=== PATIENT | female | born 1960 | race Caucasian/White ===

== ENCOUNTER 2017-10-12 09:35 | Emergency (ER) | payer BC ==
[2017-10-12] MEDS ORDERED: LIDOCAINE IV STA (10:24)
[2017-10-12] MEDS ORDERED: SODIUM CHLORIDE 0.9% IV STA (10:24)
[2017-10-12] MEDS ORDERED: SODIUM CHLORIDE 0.9% IV ONE (10:30)
[2017-10-12] MEDS ORDERED: LIDOCAINE IV ONE (10:30)
--- NOTE | 2017-10-12 10:30 | C.PDOC ---
History Of Present Illness 57yo female, presents to ED for evaluation of an episode of hematuria this morning and right lower quadrant abdominal pain since last night. Patient states she had chills, nausea, vomiting, diarrhea and myalgia for the past 4 days but those symptoms have now resolved. Patient states she is unsure if her abdominal pain was present over the past 4 days due to her other symptoms. She denies any fever, dysuria or polyruia. She was evaluated by her PMD yesterday for her previous symptoms and was supposed to give a stool sample; patient states her PMD is unaware of the hematuria. She reports a history of kidney stones but states the current symptoms are not similar to prior. Patient denies any chest pain, shortness of breath, vomiting, and offers no other medical complaints. Time Seen by Provider: 10/12/17 09:56 Chief Complaint (Nursing): Female Genitourinary History Per: Patient History/Exam Limitations: no limitations Onset/Duration Of Symptoms: Days (1) Current Symptoms Are (Timing): Still Present Additional History Per: Patient Past Medical History Reviewed: Historical Data, Nursing Documentation, Vital Signs Vital Signs: Last Vital Signs Temp 98.1 F 10/12/17 09:37 Pulse 80 10/12/17 12:00 Resp 20 10/12/17 12:00 BP 137/83 10/12/17 12:00 Pulse Ox 100 10/12/17 12:00 - Medical History PMH: HTN, Kidney Stones, Migraine Surgical History: Cholecystectomy (17 YRS AGO), Other Surgeries: ureteral stents Family History: States: No Known Family Hx, Unknown Family Hx - Social History Hx Tobacco Use: No Hx Alcohol Use: No Hx Substance Use: No - Immunization History Hx Tetanus Toxoid Vaccination: Yes Hx Influenza Vaccination: Yes Hx Pneumococcal Vaccination: Yes Review Of Systems Except As Marked, All Systems Reviewed And Found Negative. Constitutional: Negative for: Fever, Chills, Malaise Cardiovascular: Negative for: Chest Pain Respiratory: Negative for: Shortness of Breath Gastrointestinal: Positive for: Abdominal Pain (right lower quadrant). Negative for: Nausea, Vomiting, Diarrhea Genitourinary: Positive for: Hematuria. Negative for: Dysuria, Frequency, Other (polyuria) Physical Exam - Physical Exam Appears: Non-toxic, Other (mild painful distres) Skin: Normal Color, Warm, Dry Head: Atraumatic, Normacephalic Eye(s): bilateral: Normal Inspection, EOMI Nose: Normal Oral Mucosa: Moist Neck: Normal ROM, Supple Chest: Symmetrical Cardiovascular: Rhythm Regular Respiratory: Normal Breath Sounds Gastrointestinal/Abdominal: Soft, Tenderness (right lower quadrant), No Guarding , No Rebound Back: Normal Inspection, No CVA Tenderness Extremity: Normal ROM, No Pedal Edema Neurological/Psych: Oriented x3 ED Course And Treatment - Laboratory Results Result Diagrams: 10/12/17 10:51 10/12/17 10:51 O2 Sat by Pulse Oximetry: 98 (RA) Pulse Ox Interpretation: Normal Progress Note: Labs, CT abdomen/pelvis ordered. Patient given Lidocaine and Toradol for pain relief. Progress - Re-Evaluation Re-evaluation Note: 10/12/17 11:27 D/W DR TOLBERT AWARE OF ER FINDINGS. CT PENDING. DC IF NEG 10/12/17 13:04 D/W DR TOLBERT AWARE OF CT FINDINGS, FU OFFICE 10/12/17 13:21 APPEARS COMFORTABLE FU OFFICE - Data Reviewed Data Reviewed: Lab, Diagnostic imaging, Old records Disposition Counseled Patient/Family Regarding: Studies Performed, Diagnosis, Need For Followup - Disposition Referrals: Carlin Tolbert MD [Staff Provider] - Disposition: HOME/ ROUTINE Disposition Time: 13:22 Condition: GOOD Instructions: Diverticulosis (DC) Forms: [facility] ([place]), Work/School/Gym Excuse - Clinical Impression Clinical Impression: Diverticulosis - Scribe Statement The provider has reviewed the documentation as recorded by the Scribe (Norma Xiao) Provider Attestation: All medical record entries made by the Scribe were at my direction and personally dictated by me. I have reviewed the chart and agree that the record accurately reflects my personal performance of the history, physical exam, medical decision making, and the department course for this patient. I have also personally directed, reviewed, and agree with the discharge instructions and disposition.
[2017-10-12 11:01] LABS: SQUAMOUS EPITHIAL < 1 /hpf (0-5); URINE BILIRUBIN NEGATIVE (NEGATIVE); URINE BLOOD NEGATIVE (NEGATIVE); URINE CLARITY Clear (Clear); URINE COLOR Amber (YELLOW); URINE GLUCOSE (UA) NORMAL (Normal); URINE LEUKOCYTE ESTERASE TRACE Leu/uL (Negative); URINE PROTEIN NEGATIVE (NEGATIVE); URINE UROBILINOGEN NORMAL mg/dL (0.2-1.0)
[2017-10-12 11:03] LABS: BASO % 0.8 % (0.0-2.0); EOS # 0.4 K/uL (0.0-0.7); EOS % 7.5 % (0.0-4.0); LYMPH # 1.7 K/uL (1.0-4.3); LYMPH % 29.9 % (20.0-40.0); MEAN CELL VOLUME 89.6 fL (81.0-99.0); MEAN CORPUSCULAR HEMOGLOBIN 30.3 pg (27.0-31.0); MEAN CORPUSCULAR HGB CONC 33.8 g/dL (33.0-37.0); MEAN PLATELET VOLUME 8.5 fL (7.2-11.7); MONO # 0.4 K/uL (0.0-0.8); MONO % 7.5 % (0.0-10.0); NEUT # 3.1 K/uL (1.8-7.0); NEUT % 54.3 % (50.0-75.0); NRBC % 0.1 % (0.0-2.0); RBC 4.62 Mil/uL (3.80-5.20); RED CELL DISTRIBUTION WIDTH 13.2 % (11.5-14.5); WHITE BLOOD COUNT 5.8 K/uL (4.8-10.8)
[2017-10-12 11:09] LABS: ALB/GLOB RATIO 1.1 (1.0-2.1); ALBUMIN 4.4 g/dL (3.5-5.0); ALT/SGPT 78 U/L (9-52); AST/SGOT 55 U/L (14-36); BLOOD UREA NITROGEN 16 mg/dL (7-17); CALCIUM 9.4 mg/dl (8.6-10.4); GFR AFRICAN-AMERICAN > 60; GFR NON-AFRICAN AMERICAN > 60; LIPASE 196 U/L (23-300)
--- NOTE | 2017-10-12 12:52 | CT ---
PROCEDURE: CT Abdomen and Pelvis without intravenous contrast HISTORY: RLQ PAIN HEMATURIA RO RENAL STONE VS APPY COMPARISON: Abdomen ultrasound 07/03/2014. TECHNIQUE: Helical CT of the abdomen and pelvis was performed without oral or intravenous contrast as per referring physician request. Contrast dose: None Radiation dose: Total exam DLP = 495.50 mGy-cm. This CT exam was performed using one or more of the following dose reduction techniques: Automated exposure control, adjustment of the mA and/or kV according to patient size, and/or use of iterative reconstruction technique. FINDINGS: LOWER THORAX: Unremarkable. LIVER: Unremarkable. No gross lesion or ductal dilatation. GALLBLADDER AND BILE DUCTS: Prior cholecystectomy reiterated. PANCREAS: Unremarkable. No gross lesion or ductal dilatation. SPLEEN: Unremarkable. ADRENALS: Unremarkable. No mass. KIDNEYS AND URETERS: No obstructive uropathy bilaterally. Multiple intrarenal calculi identified bilaterally, numbering at least 2 which are only 1-2 mm greatest dimension the right kidney's Lower and midpole regions with 2 or 3 seen at the left kidney. The largest at the left measures 6.3 mm at the lower pole. The cyst is seen measure 1.5 cm greatest dimension exophytic posteriorly off the midpole right kidney. VASCULATURE: Unremarkable. No aortic aneurysm. BOWEL: Stomach is collapsed. No bowel obstruction evident. Moderate fecal loading seen throughout the colon. Scattered colonic diverticular appreciated which not appear acute. Left hemicolon is more affected than right. APPENDIX: Unremarkable. Normal appendix. PERITONEUM: Unremarkable. No free fluid. No free air. LYMPH NODES: Unremarkable. No enlarged lymph nodes. BLADDER: Unremarkable. REPRODUCTIVE: Unremarkable. BONES: No acute fracture. OTHER FINDINGS: None. IMPRESSION: Nonobstructing intrarenal calculi are identified bilaterally. A small cyst seen related to the right kidney. Urinary bladder appears unremarkable. Prior cholecystectomy. Diffuse colonic diverticulosis without diverticulitis.
[2017-10-12 13:33] VITALS: BP 116/78; PULSE 65; RESP 16; TEMP 98.5; O2SAT 100
== END 2017-10-12 14:05 | disposition home or self-care (01) ==
LOC: C.ER 09:35
DX: K57.90 Diverticulosis of intestine, part unspecified, without perforation or abscess without bleeding (principal)
CPT/HCPCS: 74176; 80053; 81001; 83690; 85025; 87086; 96374; 96375; 99285; J1885; J2001; J2405